=== PATIENT | male | born 1965 | race Caucasian/White ===

== ENCOUNTER → 2019-06-11 08:57 | Outpatient (BNVA) | payer OTHER, SELFPAY | PROVIDERS: Family Provider Family Medicine; PCP Emergency Medicine Emergency Medical Services; Referring Provider Emergency Medicine Emergency Medical Services; Visit Provider Specialist | DX: M25.562 Pain in left knee (principal); M25.561 Pain in right knee | CPT/HCPCS: 73560; 73565 ==

== ENCOUNTER 2019-06-18 06:00 | Outpatient (RCR) | payer OTHER, SELFPAY | END 2019-06-27 23:59 | disposition home or self-care (01) | LOC: SPT 06:00 | PROVIDERS: Family Provider Family Medicine; PCP Emergency Medicine Emergency Medical Services; Referring Provider Specialist; Visit Provider Specialist | DX: M17.11 Unilateral primary osteoarthritis, right knee (principal) | CPT/HCPCS: 97110; 97161 ==

== ENCOUNTER 2019-06-28 06:00 | Outpatient (RCR) | payer OTHER, SELFPAY | END 2019-07-26 23:59 | disposition home or self-care (01) | LOC: SPT 06:00 | PROVIDERS: Family Provider Family Medicine; PCP Emergency Medicine Emergency Medical Services; Referring Provider Specialist; Visit Provider Specialist | DX: M17.11 Unilateral primary osteoarthritis, right knee (principal) | CPT/HCPCS: 97110 ==

== ENCOUNTER 2019-07-27 06:00 | Outpatient (RCR) | payer OTHER, SELFPAY | END 2019-08-26 23:59 | disposition home or self-care (01) | LOC: SPT 06:00 | PROVIDERS: Family Provider Family Medicine; PCP Emergency Medicine Emergency Medical Services; Referring Provider Specialist; Visit Provider Specialist | DX: M17.11 Unilateral primary osteoarthritis, right knee (principal) | CPT/HCPCS: 97110 ==

== ENCOUNTER → 2020-06-17 08:54 | Outpatient (BNVA) | payer OTHER, SELFPAY | PROVIDERS: Family Provider Family Medicine; PCP Emergency Medicine Emergency Medical Services; Referring Provider Specialist; Visit Provider Specialist | DX: G43.019 Migraine without aura, intractable, without status migrainosus (principal) | CPT/HCPCS: 99203 ==

== ENCOUNTER 2020-11-23 10:28 | Outpatient (CLI) | payer OTHER, SELFPAY ==
--- NOTE | 2020-11-23 10:33 | FL_ITS ---
WS: [id number] ESOPHAGRAM WITH FLUOROSCOPY HISTORY: DYSPHAGIA, PHARYNGOESOPHAGEAL PHASE COMPARISON: None available. FLUOROSCOPY TIME: 1.4MIN minutes. Esophagus and swallowing function: Patient swallowed the barium mixture without difficulty. No strict ures or mucosal abnormalities are identified. There is very slight narrowing of the distal esophagus but did not cause delay in the barium mixture or the barium tablet. Small esophageal diverticulum is noted intermittently throughout the examination at the C6-7 level. Gastroesophageal reflux: None. Hiatal hernia: Small hiatal hernia. FL/FL barium swallow [id number] IMPRESSION: 1. Very mild narrowing of the distal esophagus but did not cause delayed in sw allowing the barium mixture or the barium tablet. 2. Small hiatal hernia. 3. Small posterior esophageal diverticulum at C6-7.
== END 2020-11-23 10:29 | disposition home or self-care (01) ==
LOC: RADWPI 10:30
PROVIDERS: PCP Emergency Medicine Emergency Medical Services; Visit Provider Otolaryngology
DX: R13.14 Dysphagia, pharyngoesophageal phase (principal); K44.9 Diaphragmatic hernia without obstruction or gangrene; Q39.6 Congenital diverticulum of esophagus
CPT/HCPCS: 74220

== ENCOUNTER → 2020-12-14 09:54 | Outpatient (BNVA) | payer OTHER, SELFPAY | PROVIDERS: PCP Emergency Medicine Emergency Medical Services; Visit Provider Specialist | DX: G43.019 Migraine without aura, intractable, without status migrainosus (principal); F17.200 Nicotine dependence, unspecified, uncomplicated | CPT/HCPCS: 99213 ==

== ENCOUNTER → 2021-12-14 12:25 | Outpatient (BNVA) | payer OTHER, SELFPAY | PROVIDERS: PCP Emergency Medicine Emergency Medical Services; Visit Provider Specialist | DX: G43.019 Migraine without aura, intractable, without status migrainosus (principal); F32.A Depression, unspecified | CPT/HCPCS: 99213; 99214 ==

== ENCOUNTER → 2022-04-17 08:07 | Outpatient (BNVA) | payer OTHER, SELFPAY | PROVIDERS: PCP Emergency Medicine Emergency Medical Services; Visit Provider Specialist | DX: G43.019 Migraine without aura, intractable, without status migrainosus (principal); R20.0 Anesthesia of skin; R20.2 Paresthesia of skin; F41.9 Anxiety disorder, unspecified | CPT/HCPCS: 99213 ==

== ENCOUNTER → 2022-05-31 12:54 | Outpatient (BNVA) | payer OTHER, SELFPAY | PROVIDERS: PCP Emergency Medicine Emergency Medical Services; Referring Provider Specialist; Visit Provider Specialist | DX: G56.01 Carpal tunnel syndrome, right upper limb (principal) | CPT/HCPCS: 95910; 95912 ==

== ENCOUNTER → 2022-10-18 10:47 | Outpatient (BNVA) | payer OTHER, SELFPAY | PROVIDERS: PCP Emergency Medicine Emergency Medical Services; Visit Provider Nurse Practitioner Family | DX: S20.461A Insect bite (nonvenomous) of right back wall of thorax, initial encounter (principal); W57.XXXA Bitten or stung by nonvenomous insect and other nonvenomous arthropods, initial encounter; Z80.8 Family history of malignant neoplasm of other organs or systems; Z85.828 Personal history of other malignant neoplasm of skin; L85.3 Xerosis cutis; L81.4 Other melanin hyperpigmentation; D22.5 Melanocytic nevi of trunk; Z71.89 Other specified counseling; L57.8 Other skin changes due to chronic exposure to nonionizing radiation; L57.0 Actinic keratosis; L81.5 Leukoderma, not elsewhere classified | CPT/HCPCS: 17000; 17003; 99214 ==

== ENCOUNTER → 2023-04-16 07:40 | Outpatient (BNVA) | payer OTHER, SELFPAY | PROVIDERS: PCP Emergency Medicine Emergency Medical Services; Visit Provider Specialist | DX: I20.0 Unstable angina (principal); G43.019 Migraine without aura, intractable, without status migrainosus | CPT/HCPCS: 99214 ==

== ENCOUNTER → 2023-05-14 13:29 | Outpatient (BNVA) | payer OTHER, SELFPAY | PROVIDERS: PCP Emergency Medicine Emergency Medical Services; Referring Provider Specialist; Visit Provider Internal Medicine | DX: R07.9 Chest pain, unspecified (principal); R06.09 Other forms of dyspnea; E78.5 Hyperlipidemia, unspecified; I44.0 Atrioventricular block, first degree; F17.200 Nicotine dependence, unspecified, uncomplicated; I49.1 Atrial premature depolarization; I49.3 Ventricular premature depolarization; I47.10 Supraventricular tachycardia, unspecified | CPT/HCPCS: 93005; 93225; 99204 ==

== ENCOUNTER 2023-05-25 07:13 | Outpatient (CLI) | payer OTHER, SELFPAY ==
--- NOTE | 2023-05-25 07:34 | ECG_ITS ---
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 Interpretive Statements NAME OF STUDY: LEXISCAN SESTAMIBI STRESS TEST INDICATION: [Chest Pain; Shortness of Breath, ] Procedure: At the baseline, the blood pressure was 144/92 mmHg with a heart rate of 55 bpm. The electrocardiogram showed sinus bradycardia, normal axis with normal ST and T's. The Lexiscan was infused over a period of 20 seconds. A total of 0.4 mg of Lexiscan was infused. The stress phase was continued for a total of 5 minutes. Heart rate was at the end of stress phase was 68 bpm and a blood pressure of 150/91 mmHg. The EKG at the peak infusion revealed normal sinus rhythm with no significant ST-T wave changes. Sestamibi was injected 20 seconds after the Lexiscan infusion. Blood pressure at the end of recovery phase was 148/88 mmHg with a heart rate of 69 bpm. Conclusion: 1. Normal EKG response to Lexiscan infusion 2. No Lexiscan induced chest pain or cardiac arrhythmia. 3. Normal blood pressure and heart rate response. 4. Sestamibi/sestamibi perfusion scan pending; see separate report. Electronically Signed On 06-12-2023 16:28:32 BEE RANCHER by Delta Freire M.D. [id number]
[2023-05-25 07:35] VITALS: BMI 42.7
--- NOTE | 2023-05-25 07:35 | NMCV_ITS ---
NM reid perf SPECT r/s* [id number] Shan Guadalupe Age: 57 Gender: M : 1965 Exam Date: 05/25/2023 07:35 Ordering Phys: Delta Freire M.D ([email or web address]) Technologist: ALYSHA Cosby Exam Location: [facility] [place] Indications: CHEST PAIN STRESS TEST Please [facility] for [facility] IMAGE PROTOCOL Rest/Stress 1 Lexiscan Day Radiopharmaceutical Dose (mCi) Administration Site Administered by Rest: Tc-99m 10.9 IV ALYSHA Dotson Sestamibi Stress:Tc-99m 32.3 IV ALYSHA Cosby Sestaminatali Rest: 25-May-2023 60 Discovery 630 Stress: 25-May-2023 30 Discovery 630 0.4mg Lexiscan. Images obtained in supine and prone position. SPECT RESULTS Technical Quality: Excellent Raw Data Analysis: Normal Image Corrections: No attenuation or motion correction applied Summed Stress Score: 0 Summed Rest Score: 0 Summed Difference Score: 0 PERFUSION FINDINGS SPECT images demonstrate homogeneous tracer distribution throughout the myocardium. FUNCTIONAL RESULTS (calculated via Gated SPECT) Stress Image LV EF (%): 58 Stress EDV (mL):131 TID: 1.08 Stress ESV (mL):55 FUNCTIONAL FINDINGS: There is normal left ventricular systolic function. IMPRESSIONS 1. Normal myocardial perfusion imaging with no evidence of ischemia. 2. LV systolic function is normal. eDlta Freier MD (Electronically Signed) Final Date: 26 May 2023 10:33 S
[2023-05-25] MEDS: regadenoson 0.4 Mg/5 ml Syringe IVP (08:51)
[2023-05-25 09:18] VITALS: BP 148/88; PULSE 69
--- NOTE | 2023-05-25 14:15 | USCV_ITS ---
Shan Guadalupe Age: 57 Gender: M : 1965 Exam Date: 05/25/2023 07:44 Ordering Phys: Delta Freire M.D ([email or web address]) Technologist: Rufus Schulte [place] [facility] [place] Indication: chest pain BP: 135 / 80 HR: 61 Rhythm: Sinus Technical Quality: Adequate MEASUREMENTS (Male / Female) Normal Values 2D ECHO LV Diastolic Diameter PLAX 3.8 cm 4.2 - 5.9 / 3.9 - 5.3 cm LV Systolic Diameter PLAX 2.6 cm IVS Diastolic Thickness 1.3 cm 0.6 - 1.0 / 0.6 - 0.9 cm IVS Systolic Thickness 1.7 cm LVPW Diastolic Thickness 1.5 cm 0.6 - 1.0 / 0.6 - 0.9 cm LVPW Systolic Thickness 1.4 cm LVOT Diameter 2.0 cm LV Ejection Fraction 2D Teich 62.0 % LV Ejection Fraction MOD 2C 61.8 % LV Ejection Fraction 2C AL 61.3 % LA Diameter 4.4 cm IVC Diameter 2.2 cm M-MODE Aortic Annulus Diameter 4.1 cm LA Ao Ratio MM 1.3 MV E Point Septal Separation 1.4 cm DOPPLER AV Peak Velocity 118.0 cm/s LVOT Peak Velocity 95.0 cm/s AV Area Cont Eq vti 2.7 cm squared AV Area Cont Eq pk 2.6 cm squared MV Area PHT 4.0 cm squared Mitral E to A Ratio 1.4 MV E' Velocity 49.5 cm/s Mitral E to MV E' Ratio 8.2 Mitral E to LV E' Lateral Ratio 6.7 Mitral E to LV E' Septal Ratio 10.3 TR Peak Velocity 116.0 cm/s TR Peak Gradient 5.4 mmHg TV Peak E Velocity 103.0 cm/s Right Atrial Pressure 3.0 mmHg Pulmonary Artery Systolic Pressu 8.4 mmHg RV Acceleration Time 0.2 s FINDINGS Left Ventricle Technically limited quality echocardiogram because of poor ultrasonic windows. LV systolic function is normal with EF of 55 to 60%. No regional wall motion abnormalities are seen. Right Ventricle Normal in size and function Right Atrium Normal in size Left Atrium Dilated Mitral Valve Structurally normal mitral valve. Aortic Valve Structurally normal aortic valve. No significant stenosis or regurgitation. Tricuspid Valve Trace tricuspid regurgitation. Insufficient TR jet to calculate RVSP. Pulmonic Valve Not well-visualized Pericardium Normal Aorta Normal in size IVC Not well visualized CONCLUSIONS LV systolic function is normal with EF of 55 to 60%. Left atrial dilation. Trace tricuspid regurgitation No comparison studies are available Delta Freire MD (Electronically Signed) Final Date: 02 June 2023 14:33 S
== END 2023-05-25 07:14 | disposition home or self-care (01) ==
PROVIDERS: PCP Emergency Medicine Emergency Medical Services; Visit Provider Internal Medicine
DX: R07.9 Chest pain, unspecified (principal); R06.02 Shortness of breath
CPT/HCPCS: 36415; 78452; 93017; 93306; 96374; A9500; J2785

== ENCOUNTER → 2023-07-16 14:09 | Outpatient (BNVA) | payer OTHER, SELFPAY | PROVIDERS: PCP Emergency Medicine Emergency Medical Services; Visit Provider Internal Medicine | DX: R06.09 Other forms of dyspnea (principal); E78.5 Hyperlipidemia, unspecified | CPT/HCPCS: 99214 ==

== ENCOUNTER 2023-08-02 13:44 | Outpatient (CLI) | payer OTHER, SELFPAY | END 2023-08-02 13:45 | disposition home or self-care (01) | LOC: RT 13:44 | PROVIDERS: PCP Emergency Medicine Emergency Medical Services; Visit Provider Internal Medicine | DX: R06.02 Shortness of breath (principal) | CPT/HCPCS: 94010; 94726; 94729 ==

== ENCOUNTER → 2023-10-18 10:19 | Outpatient (BNVA) | payer OTHER, SELFPAY | PROVIDERS: PCP Emergency Medicine Emergency Medical Services; Visit Provider Nurse Practitioner Family | DX: D48.5 Neoplasm of uncertain behavior of skin (principal); L82.0 Inflamed seborrheic keratosis; Z80.8 Family history of malignant neoplasm of other organs or systems; Z85.828 Personal history of other malignant neoplasm of skin; L57.0 Actinic keratosis; S30.861A Insect bite (nonvenomous) of abdominal wall, initial encounter; X58.XXXA Exposure to other specified factors, initial encounter; T07.XXXA Unspecified multiple injuries, initial encounter | CPT/HCPCS: 17000; 17110; 69100; 99214 ==

== ENCOUNTER 2023-11-13 20:15 | Emergency (ER) | payer OTHER, SELFPAY ==
[2023-11-13 20:59] VITALS: BP 167/95; PULSE 71; RESP 18; TEMP 36.8; O2SAT 94; BMI 41.0
--- NOTE | 2023-11-13 23:03 | W.ED.GENADLT ---
Documented by User: CHIVO Ohara 11/13/23 23:07 HPI - General Adult General: Chief complaint: General Medical Stated complaint: skin graft area bleeding wont stop Time Seen by Provider: 11/13/23 22:43 Source: patient Mode of arrival: ambulatory Limitations: no limitations History of Present Illness: Patient is a 58-year-old male presenting to the emergency department complaining of postoperative bleeding. 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 He states he has no other complaints, as it is not painful and he simply wants extra supplies to dress the wound. He has appointment tomorrow for skin graft procedure. MD complaint: Postoperative bleeding Location: head (Left ear) Associated symptoms: Reports no associated symptoms; Deny chest pain, dyspnea, headache(s), nausea, rash, palpitations or vomiting Review of Systems General: Reports: 10 or more systems reviewed and unremarkable except in HPI and below Const: Reports: other (Postoperative bleeding); Denies: fever(s), chills or fatigue Eyes: Denies: change in vision ENMT: Denies: throat pain, ear or mastoid pain or nasal discharge Card: Denies: chest pain, palpitations, swelling of feet/ankles or lightheadedness Resp: Denies: dyspnea, productive cough or wheezing GI: Denies: abdominal pain, nausea, vomiting, diarrhea or constipation : Denies: flank pain, difficulty urinating, dysuria or urinary frequency Musc: Denies: neck pain, back pain or joint pain Skin/Breast: Denies: rash Neuro: Denies: headache(s), numbness in extremities or weakness in extremities PFSH ED PFSH: Medical History Psychiatric care Familial hypercholanemia Gout Knee pain, right PTSD (post-traumatic stress disorder) Social History Smoking and tobacco/nicotine status: current every day tobacco/nicotine user Alcohol intake: current Alcohol intake frequency: few times a week Substance/Drug Use: never Physical Exam Const: COMMON NORMALS: no acute distress, patient oriented x3, no limitations, healthy appearing and alert GENERAL APPEARANCE: cooperative and comfortable ORIENTATION/CONSCIOUSNESS: Yes awake HENMT: COMMON NORMALS: normocephalic and atraumatic HEAD & SCALP: normocephalic and atraumatic FACE & SINUS: normal facial exam OTHER: Nonbleeding, circumferential postoperative wound noted to patient's left pinna. This area is not tender to palpation and does appear to be healing. Eye: COMMON NORMALS: EOMs intact bilaterally and conjunctivae normal CONJUNCTIVA: Yes conjunctivae normal Neck/C-Spine: COMMON NORMALS: full ROM Resp: COMMON NORMALS: normal respiratory effort, No use of accessory muscles and clear to auscultation bilaterally AUSCULTATION: clear to auscultation bilaterally Cardio: COMMON NORMALS: regular rate and regular rhythm RATE: regular rate RHYTHM: regular rhythm Extremity: COMMON NORMALS: normal to inspection and full ROM Neuro: COMMON NORMALS: patient oriented x3, moves all extremities, no focal motor deficits and no sensory deficits noted SENSORIUM/ORIENTATION: Yes alert Psych: COMMON NORMALS: mental status grossly normal Course Vital Signs: Vital signs: Vital Signs Temperature 98.2 F 11/13/23 23:20 Pulse Rate 71 11/13/23 23:20 Respiratory Rate 18 11/13/23 23:20 Blood Pressure 167/95 11/13/23 23:20 Pulse Oximetry 94 11/13/23 23:20 Oxygen Delivery Me thod Room Air 11/13/23 20:59 MDM - General Adult Medical Decision Making Patient presents after having procedure to remove skin cancer his left ear today, states he was not sent home with enough bandage protection as the wound began to bleed and he was unable to stop it. On examination the wound was nonbleeding and did appear without complication. He just wants dressed and sent home, and we did provide him with extra bandages as he does have appointment for skin graft tomorrow. Strict return precautions given. No radiology studies performed this visit Discharge Plan Discharge Patient Disposition: Home Clinical Impression: Post-operative hemorrhage Qualifiers: Surgical complication system/body Area: skin Procedure type: dermatologic Qualified Code(s): L76.21 - Postprocedural hemorrhage of skin and subcutaneous tissue following a dermatologic procedure Condition: Stable Prescriptions: No Action ascorbic acid (vitamin C) 250 mg tablet 250 mg PO DAILY ibuprofen [Advil Migraine] 200 mg capsule 400 mg PO Q6H PRN (Reason: pain) Qty: 240 5RF acetaminophen [Tylenol Extra Strength] 500 mg tablet 1,000 mg PO Q6H PRN (Reason: fever) Qty: 240 5RF rosuvastatin 40 mg tablet 40 mg PO ONCE allopurinol 300 mg tablet 150 mg PO ONCE cetirizine 10 mg capsule 10 mg PO ONCE cholecalciferol (vitamin D3) 1,000 unit capsule 2,000 unit PO ONCE colchicine 0.6 mg capsule 0.6 mg PO ONCE fluoxetine 20 mg capsule 20 mg PO BID Rx Instructions: administer in the morning and at noon/midday prazosin 2 mg capsule 2 mg PO BID propranolol 20 mg tablet 20 mg PO BID Qty: 180 3RF Rx Instructions: Take 1 tablet twice daily (DME) Wrist Brace Misc See Rx Instructions .Route Qty: 2 0RF Rx Instructions: As directed sumatriptan succinate [Imitrex] 100 mg tablet 100 mg PO Q2H PRN (Reason: migraine headache) Qty: 60 11RF Rx Instructions: do not exceed 2 doses per 24 hrs Repeat in 1 hour if needed. Discharge Orders: Discharge ED (Routine); Ordered 11/13/23 Ordered By: Markus Cool Referrals: Alexander Chagn DO [Primary Care Provider] - Discharge Diet: Usual diet Discharge Activity: Increase activity as tolerated Patient Instructions: Postoperative Bleeding (ED) Activity Restrictions/Additional Instructions: Keep wound dressed appropriately as discussed. Follow-up as planned tomorrow for skin graft. Return with any new or worsening. Coding Level of Care Code ED Language And Literature Division Chair for Chg Fwd Documented by User: Noah Garvin DO 11/14/23 15:51 HPI - General Adult General: Chief complaint: General Medical Stated complaint: skin graft area bleeding wont stop Time Seen by Provider: 11/13/23 22:43 PFSH ED PFSH: Medical History Psychiatric care Familial hypercholanemia Gout Knee pain, right PTSD (post-traumatic stress disorder) Social History Smoking and tobacco/nicotine status: current every day tobacco/nicotine user Alcohol intake: current Alcohol intake frequency: few times a week Substance/Drug Use: never Course Vital Signs: Vital signs: Vital Signs Temperature 98.2 F 11/13/23 23:20 Pulse Rate 71 11/13/23 23:20 Respiratory Rate 18 11/13/23 23:20 Blood Pressure 167/95 11/13/23 23:20 Pulse Oximetry 94 11/13/23 23:20 Oxygen Delivery Me thod Room Air 11/13/23 20:59 MDM - General Adult Medical Decision Making Patient presents after having procedure to remove skin cancer his left ear today, states he was not sent home with enough bandage protection as the wound began to bleed and he was unable to stop it. On examination the wound was nonbleeding and did appear without complication. He just wants dressed and sent home, and we did provide him with extra bandages as he does have appointment for skin graft tomorrow. Strict return precautions given. Chart reviewed Discharge Plan Discharge Patient Disposition: Home Clinical Impression: Post-operative hemorrhage Qualifiers: Surgical complication system/body Area: skin Procedure type: dermatologic Qualified Code(s): L76.21 - Postprocedural hemorrhage of skin and subcutaneous tissue following a dermatologic procedure Condition: Stable Prescriptions: No Action ascorbic acid (vitamin C) 250 mg tablet 250 mg PO DAILY ibuprofen [Advil Migraine] 200 mg capsule 400 mg PO Q6H PRN (Reason: pain) Qty: 240 5RF acetaminophen [Tylenol Extra Strength] 500 mg tablet 1,000 mg PO Q6H PRN (Reason: fever) Qty: 240 5RF rosuvastatin 40 mg tablet 40 mg PO ONCE allopurinol 300 mg tablet 150 mg PO ONCE cetirizine 10 mg capsule 10 mg PO ONCE cholecalciferol (vitamin D3) 1,000 unit capsule 2,000 unit PO ONCE colchicine 0.6 mg capsule 0.6 mg PO ONCE fluoxetine 20 mg capsule 20 mg PO BID Rx Instructions: administer in the morning and at noon/midday prazosin 2 mg capsule 2 mg PO BID propranolol 20 mg tablet 20 mg PO BID Qty: 180 3RF Rx Instructions: Take 1 tablet twice daily (DME) Wrist Brace Misc See Rx Instructions .Route Qty: 2 0RF Rx Instructions: As directed sumatriptan succinate [Imitrex] 100 mg tablet 100 mg PO Q2H PRN (Reason: migraine headache) Qty: 60 11RF Rx Instructions: do not exceed 2 doses per 24 hrs Repeat in 1 hour if needed. Discharge Orders: Discharge ED (Routine); Ordered 11/13/23 Ordered By: Markus Cool Referrals: Alexander Chang DO [Primary Care Provider] - Discharge Diet: Usual diet Discharge Activity: Increase activity as tolerated Patient Instructions: Postoperative Bleeding (ED) Activity Restrictions/Additional Instructions: Keep wound dressed appropriately as discussed. Follow-up as planned tomorrow for skin graft. Return with any new or worsening. Coding Level of Care Code ED Language And Literature Division Chair for Michael Reid
[2023-11-13 23:20] VITALS: BP 167/95; PULSE 71; RESP 18; TEMP 36.8; O2SAT 94
== END 2023-11-13 23:21 | disposition home or self-care (01) ==
PROVIDERS: Emergency Provider Physician Assistant; PCP Emergency Medicine Emergency Medical Services
DX: L76.21 Postprocedural hemorrhage of skin and subcutaneous tissue following a dermatologic procedure (principal); Z72.0 Tobacco use
CPT/HCPCS: 17311; 99282

== ENCOUNTER → 2023-11-15 08:50 | Outpatient (BNVA) | payer OTHER, SELFPAY | PROVIDERS: PCP Emergency Medicine Emergency Medical Services; Visit Provider Dermatology | DX: C44.219 Basal cell carcinoma of skin of left ear and external auricular canal (principal); C44.311 Basal cell carcinoma of skin of nose | CPT/HCPCS: 15260 ==

== ENCOUNTER → 2023-11-27 14:18 | Outpatient (BNVA) | payer OTHER, SELFPAY | PROVIDERS: PCP Emergency Medicine Emergency Medical Services; Referring Provider Family Medicine; Visit Provider Orthopaedic Surgery | DX: M54.50 Low back pain, unspecified (principal); M54.2 Cervicalgia; M54.9 Dorsalgia, unspecified; G89.29 Other chronic pain | CPT/HCPCS: 99204 ==

== ENCOUNTER → 2023-12-20 11:01 | Outpatient (BNVA) | payer OTHER, SELFPAY | PROVIDERS: PCP Emergency Medicine Emergency Medical Services; Visit Provider Dermatology | DX: Z48.817 Encounter for surgical aftercare following surgery on the skin and subcutaneous tissue (principal); Z85.828 Personal history of other malignant neoplasm of skin; S20.462A Insect bite (nonvenomous) of left back wall of thorax, initial encounter; S20.469A Insect bite (nonvenomous) of unspecified back wall of thorax, initial encounter; X58.XXXA Exposure to other specified factors, initial encounter; D22.5 Melanocytic nevi of trunk | CPT/HCPCS: 99213 ==

== ENCOUNTER 2024-01-08 07:48 | Outpatient (CLI) | payer OTHER, SELFPAY ==
--- NOTE | 2024-01-08 08:00 | MR_ITS ---
WS: [id number] MRI LUMBAR SPINE NONCONTRAST HISTORY: lumbar pain COMPARISON: None available. TECHNIQUE: Sagittal and axial multisequence imaging is submitted. L5 anterolisthesis by 4.1 mm. Remaining alignment is normal. Schmorl's node along the inferior endpla te of L3. There is edema surrounding the Schmorl's node suggesting this may be acute. No fractures. Disc spaces and vertebral body heights are well-preserved. Conus terminates normally at L1-2 disc level. L1-L2: Normal. L2-L3: Mild annular disc bulging with ligamentum flavum and facet arthritis. There is very mild LEFT foraminal narrowing and a small LEFT foraminal disc protrusion. L3-L4: Mild osteophytic ridging with ligamentum flavum and facet arthritis. Small amount of fluid in the facet joints. There is very mild encroachment upon the subarticular recesses and foramina. Slight ly greatest encroachment upon the RIGHT traversing L4 nerve root. Mild central, bilateral subarticula r recess and foraminal stenosis. L4-L5: Mild annular disc bulging with mild ligamentum flavum and facet arthritis. Fluid in the facet joints. Very mild foraminal narrowing. L5-S1: Mild annular disc bulging with facet and ligamentum flavum hypertrophy. Very mild foraminal na rrowing. MR/MR lumbar spine wo con* [id number] IMPRESSION: 1. No high-grade central or foraminal stenosis. 2. L3-4: Mild central, bilateral subarticular recess and foraminal stenosis du e to combination of osteophyte disc bulging and facet disease. Slightly greates t encroachment upon the RIGHT traversing L4 nerve root. 3. Mild foraminal narrowing L4-5 and L5-S1. 4. Mild LEFT foraminal narrowing and a small LEFT foraminal disc protrusion at L2-3. 5. Schmorl's node in the inferior endplate of L3 with surrounding edema. Edema may indicate an acute Schmorl's node.
--- NOTE | 2024-01-08 08:45 | MR_ITS ---
WS: [id number] MRI CERVICAL SPINE NONCONTRAST HISTORY: cervical pain COMPARISON: Radiographs 10/25/2023 Technique: Multiplanar, multisequence noncontrast imaging of the cervical spine. Marked straightening of the normal cervical lordosis. Moderate degenerative disc disease and osteophytic ridging around the vertebral bodies. No contact on the central cord. Craniocervical junction, C1 and C2 relationship, odontoid process and soft tissues are normal. C2-C3: Normal. C3-C4: Mild osteophytic ridging and annular disc bulging. Mild effacement of ventral CSF without sten osis. Mild bilateral foraminal stenosis due to osteophytes. C4-C5: Mild osteophytic ridging and facet arthritis. No significant stenosis. C5-C6: Mild osteophytic ridging with facet arthritis. Small disc osteophyte complexes in the neural f oramen resulting in at least moderate bilateral foraminal stenosis. C6-C7: Osteophytic ridging and facet arthritis. Moderate to severe bilateral foraminal stenosis. No c entral stenosis. C7-T1: Normal. Paraspinal soft tissue are normal. MR/MR cervical spin wo con* [id number] IMPRESSION: 1. Cervical spine spine straightening with moderate spondylosis. 2. Multiple levels of foraminal stenosis, predominantly due to hypertrophic os teophyte disease. 3. C5-6: Moderate bilateral foraminal stenosis due to osteophytes. 4. C6-7: Moderate to severe bilateral foraminal stenosis. 5. C3-4: Mild bilateral foraminal stenosis.
--- NOTE | 2024-01-08 09:30 | MR_ITS ---
WS: [id number] MRI THORACIC SPINE noncontrast HISTORY: thoracic pain COMPARISON: None available. TECHNIQUE: Multiplanar sequences are performed in sagittal and axial planes. Normal posterior thoracic alignment. No acute fractures or marrow edema. Normal facet joint alignment . There is a very subtle area of increased T2 signal in the central thoracic cord extending over a le ngth of 4.7 cm. Increased T2 signal extends from T6 to the mid T8 level. Maximum transverse diameter is less than 2 mm. Suspicious for syrinx. There is no cord atrophy or enlargement. There is an additi onal area of subtle increased T2 signal in the distal thoracic cord centered at the T9-T11 level whic h could be an additional syrinx. The area of increased T2 signal is also noted on the axial T2 sequen ce. Mild facet joint arthritis throughout the thoracic spine. There are no focal disc protrusions, centra l or foraminal stenosis. Normal size aorta. MR/MR thoracic spin wo con* [id number] IMPRESSION: 1. No central canal stenosis or disc protrusions. 2. Very subtle area of increased T2 signal in the central thoracic cord extend ing over a length of 4.7 cm from T6 to the mid T8. This is confirmed on the T2 axial sequence also. Although this is very small caliber I am suspicious this c ould represent a small syrinx. 3. Additional area of more subtle increased T2 signal at T9-10. Indeterminate for additional syrinx.
== END 2024-01-08 07:49 | disposition home or self-care (01) ==
LOC: RAD 07:49
PROVIDERS: PCP Emergency Medicine Emergency Medical Services; Visit Provider Orthopaedic Surgery
DX: M51.36 Other intervertebral disc degeneration, lumbar region (principal); M51.46 Schmorl's nodes, lumbar region; R93.89 Abnormal findings on diagnostic imaging of other specified body structures; M99.61 Osseous and subluxation stenosis of intervertebral foramina of cervical region; M25.78 Osteophyte, vertebrae; M99.63 Osseous and subluxation stenosis of intervertebral foramina of lumbar region
CPT/HCPCS: 72141; 72146; 72148

== ENCOUNTER → 2024-01-10 13:01 | Outpatient (BNVA) | payer OTHER, SELFPAY | PROVIDERS: PCP Emergency Medicine Emergency Medical Services; Visit Provider Orthopaedic Surgery | DX: Z09 Encounter for follow-up examination after completed treatment for conditions other than malignant neoplasm (principal); M47.22 Other spondylosis with radiculopathy, cervical region; M48.061 Spinal stenosis, lumbar region without neurogenic claudication | CPT/HCPCS: 99214 ==

== ENCOUNTER → 2024-01-14 14:24 | Outpatient (BNVA) | payer OTHER, SELFPAY | PROVIDERS: PCP Emergency Medicine Emergency Medical Services; Visit Provider Internal Medicine | DX: R06.09 Other forms of dyspnea (principal); E78.5 Hyperlipidemia, unspecified | CPT/HCPCS: 99214 ==

== ENCOUNTER 2024-03-06 14:51 | Outpatient (CLI) | payer OTHER, SELFPAY ==
--- NOTE | 2024-03-06 14:57 | XR_ITS ---
WS: [id number] XR thoracic spine 3V* [id number] REASON FOR EXAM: back pain FINDINGS: Relatively normal thoracic spine curvatures. No significant vertebral body abnormality. Minimal disc space narrowing with minimal endplate sclerosis and mild osteophytosis in the mid and lo wer thoracic spine. XR/XR thoracic spine 3V* [id number] IMPRESSION: Mild degenerative spondylosis as above.
--- NOTE | 2024-03-06 14:57 | XR_ITS ---
WS: [email or web address] XR lumbar spine min 4V [id number] REASON FOR EXAM: back pain FINDINGS: Relatively normal lumbar spine curvatures. No focal vertebral body abnormality. Mild osteophytosis L3-L5. Mild narrowing of the disc space at L5-S1. No spondylolysis. No significant spondylolisthesis. XR/XR lumbar spine min 4V [id number] IMPRESSION: Mild degenerative spondylosis as above.
--- NOTE | 2024-03-06 14:57 | XR_ITS ---
WS: [email or web address] XR cervical spine 4-5V [id number] REASON FOR EXAM: neck pain FINDINGS: Straightening of the normal lordosis of the cervical spine. No abnormality of the vertebral bodies. Moderate narrowing of the disc spaces at C5-C6 and C6-C7. Moderate anterior osteophytosis and mild un cinate osteophytosis C3-C7. No significant neuroforaminal narrowing. Calcification in the left neck p resumed left carotid artery calcified plaque. XR/XR cervical spine 4-5V [id number] IMPRESSION: Degenerative spondylosis of the cervical spine as above. Calcified left carotid plaque.
== END 2024-03-06 14:52 | disposition home or self-care (01) ==
LOC: RAD 14:55
PROVIDERS: PCP Family Medicine; Visit Provider Student in an Organized Health Care Education/Training Program
DX: M50.322 Other cervical disc degeneration at C5-C6 level (principal); M25.78 Osteophyte, vertebrae; I65.22 Occlusion and stenosis of left carotid artery
CPT/HCPCS: 72050; 72072; 72110

== ENCOUNTER → 2024-04-21 10:45 | Outpatient (BNVA) | payer OTHER, SELFPAY | PROVIDERS: PCP Family Medicine; Visit Provider Nurse Practitioner Family | DX: L57.0 Actinic keratosis (principal); L24.9 Irritant contact dermatitis, unspecified cause; L57.8 Other skin changes due to chronic exposure to nonionizing radiation; D18.01 Hemangioma of skin and subcutaneous tissue; Z85.828 Personal history of other malignant neoplasm of skin | CPT/HCPCS: 17000; 99213 ==

== ENCOUNTER → 2024-05-27 09:12 | Outpatient (BNVA) | payer OTHER, SELFPAY | PROVIDERS: PCP Family Medicine; Visit Provider Nurse Practitioner Family | DX: L24.9 Irritant contact dermatitis, unspecified cause (principal); L57.8 Other skin changes due to chronic exposure to nonionizing radiation; Z08 Encounter for follow-up examination after completed treatment for malignant neoplasm; Z85.828 Personal history of other malignant neoplasm of skin | CPT/HCPCS: 99214 ==

== ENCOUNTER → 2024-07-22 08:48 | Outpatient (BNVA) | payer OTHER, SELFPAY | PROVIDERS: PCP Family Medicine; Visit Provider Nurse Practitioner Family | DX: L24.9 Irritant contact dermatitis, unspecified cause (principal); Z08 Encounter for follow-up examination after completed treatment for malignant neoplasm; Z85.828 Personal history of other malignant neoplasm of skin; D48.5 Neoplasm of uncertain behavior of skin | CPT/HCPCS: 11102; 99213 ==

== ENCOUNTER → 2024-12-16 13:38 | Outpatient (BNVA) | payer OTHER, SELFPAY | PROVIDERS: PCP Family Medicine; Visit Provider Nurse Practitioner Family | DX: D18.01 Hemangioma of skin and subcutaneous tissue (principal); L98.0 Pyogenic granuloma; Z08 Encounter for follow-up examination after completed treatment for malignant neoplasm; Z85.828 Personal history of other malignant neoplasm of skin; L57.0 Actinic keratosis | CPT/HCPCS: 17000; 99213 ==

== ENCOUNTER → 2025-01-12 14:04 | Outpatient (BNVA) | payer OTHER, SELFPAY | PROVIDERS: PCP Family Medicine; Visit Provider Internal Medicine | DX: R06.09 Other forms of dyspnea (principal); E78.5 Hyperlipidemia, unspecified | CPT/HCPCS: 99214 ==